=== PATIENT | male | born 2000 | race Caucasian/White ===

== ENCOUNTER 2021-10-11 13:08 | Emergency (ER) | payer OTHER ==
[~2021-10-11] VITALS: Ht 172.7 cm; Wt 75.0 kg
[2021-10-11 13:13] VITALS: BP 125/69
[2021-10-11] MEDS ORDERED: AMOX875T2 PO (15:47)
== END 2021-10-11 15:56 | disposition home or self-care (01) ==
LOC: M ED 13:08
DX: T88.9XXA Complication of surgical and medical care, unspecified, initial encounter (principal); Z98.818 Other dental procedure status; F17.200 Nicotine dependence, unspecified, uncomplicated